=== PATIENT | male | born 1965 | race American Indian/Alaskan Native ===

== ENCOUNTER 2020-03-12 23:31 | Emergency (ER) | payer OTHER ==
[2020-03-13 00:57] VITALS: BP 166/85
[2020-03-13] MEDS ORDERED: IBUPROFEN 600 MG TAB PO ONE (01:29)
[2020-03-13] MEDS ORDERED: ACETAMINOPHEN 500 MG TAB PO ONE (01:29)
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
== END 2020-03-13 02:01 | disposition home or self-care (01) ==
LOC: ED 23:31
DX: S39.012A Strain of muscle, fascia and tendon of lower back, initial encounter (principal); Z98.890 Other specified postprocedural states; Z79.1 Long term (current) use of non-steroidal anti-inflammatories (NSAID); Z79.899 Other long term (current) drug therapy; V49.49XA Driver injured in collision with other motor vehicles in traffic accident, initial encounter; Y93.89 Activity, other specified; Y92.410 Unspecified street and highway as the place of occurrence of the external cause; Y99.8 Other external cause status
CPT/HCPCS: 99282